=== PATIENT | male | born 1960 | race Caucasian/White ===

== ENCOUNTER 2016-12-08 07:47 | Emergency (ER) | payer MEDICAID, OTHER ==
[~2016-12-08] VITALS: Ht 177.8 cm; Wt 65.9 kg
[2016-12-08 07:52] VITALS: BP 101/68
[2016-12-08] MEDS ORDERED: ONDA4TAB5 PO (08:00)
[2016-12-08] MEDS ORDERED: IBUP200C10 PO (08:00)
[2016-12-08] MEDS ORDERED: METR1TAB66 PO (08:00)
[2016-12-08] MEDS ORDERED: NS 1,000 ML IV SCH (08:08)
[2016-12-08] MEDS ORDERED: ONDANSETRON 4MG/2ML VIAL (J2405) IV ONE (08:15)
[2016-12-08] MEDS ORDERED: MORPHINE 2 MG/ML 1ML SYRINGE IV PRN (08:15)
[2016-12-08 08:30] LABS: BASO % 0.4 % (0.0-1.0); EOS # 0.2 K/mm3 (0.0-0.50); EOS % 1.6 % (0.0-3.0); LARGE UNSTAINED CELL # 0.1 K/mm3 (0.0-0.4); LARGE UNSTAINED CELL % 1.1 % (0.0-4.0); LYMPH # 1.6 K/mm3 (1.5-4.5); LYMPH % 15.8 % (24.0-44.0); MEAN CORPUSCULAR HEMOGLOBIN 31.5 pg (27.0-33.0); MEAN CORPUSCULAR HGB CONC 33.4 g/dl (32.0-36.5); MEAN CORPUSCULAR VOLUME 94.4 fl (80.0-96.0); MONO # 0.5 K/mm3 (0.0-0.8); MONO % 5.6 % (0.0-5.0); NEUTROPHILS # 7.2 K/mm3 (1.8-7.7); NEUTROPHILS % 75.5 % (36.0-66.0); PLATELET COUNT, AUTOMATED 224 k/mm3 (150-450); RED CELL DISTRIBUTION WIDTH 12.7 % (11.5-14.5); WHITE BLOOD COUNT 9.5 K/mm3 (4.0-10.0)
[2016-12-08] MEDS ORDERED: GASTROGRAFIN SOLUTION 30ML PO ONE (08:35)
[2016-12-08] MEDS ORDERED: GASTROGRAFIN SOLUTION 30ML (Q9963) PO ONE (09:05)
[2016-12-08 09:24] LABS: ALBUMIN 3.3 GM/DL (3.2-5.2); ALKALINE PHOSPHATASE 82 U/L (45-117); ALT/SGPT 18 U/L (12-78); ANION GAP 5 MEQ/L (8-16); AST/SGOT 14 U/L (15-37); BILIRUBIN,DIRECT < 0.1 MG/DL (0.0-0.2); BILIRUBIN,TOTAL 0.3 MG/DL (0.2-1.0); BLOOD UREA NITROGEN 10 MG/DL (7-18); CALCIUM LEVEL 8.9 MG/DL (8.5-10.1); CARBON DIOXIDE LEVEL 27 MEQ/L (21-32); CHLORIDE LEVEL 109 MEQ/L (98-107); CREATININE FOR GFR 0.88 MG/DL (0.70-1.30); GLOMERULAR FILTRATION RATE > 60.0 (>56); GLUCOSE, FASTING 109 MG/DL (70-105); POTASSIUM SERUM 4.1 MEQ/L (3.5-5.1); SODIUM LEVEL 141 MEQ/L (136-145); TOTAL PROTEIN 6.6 GM/DL (6.4-8.2)
--- NOTE | 2016-12-08 10:18 | REP ---
CT abdomen and pelvis with oral but without IV contrast: History: Diverticulitis. Comparison CT study March 28, 2016. CT findings: Digital preliminary bail agent radiograph shows an unremarkable bowel gas pattern. There is a granulomatous calcification in the left lower lobe of the lung. The liver and spleen are normal in size and homogeneous in texture. No adrenal lesion is seen on either side. The pancreas is unremarkable. No gallbladder abnormality is observed. No retroperitoneal mass or adenopathy is seen. The kidneys remain morphologically intact. There is left colonic diverticulosis again noted. There is an area of mural thickening in the sigmoid colon centrally in the pelvis with pericolonic streaking and edema. This area is involved with diverticulosis and the findings are compatible with diverticulitis. The changes are similar in location and extent to those seen on March 28, 2016. No abscess or free air is seen. Impression: Findings consistent with recurrent sigmoid colon diverticulitis. No abscess or free air seen. No other significant abnormality. Signed by Maico Askew MD 12/08/2016 03:44 P
[2016-12-08] MEDS ORDERED: FLAG500T PO (10:42)
[2016-12-08] MEDS ORDERED: NORCOTAB PO (10:42)
[2016-12-08] MEDS ORDERED: CIPR-249 PO (10:42)
== END 2016-12-08 11:21 | disposition home or self-care (01) ==
LOC: M ED 07:47
DX: K57.92 Diverticulitis of intestine, part unspecified, without perforation or abscess without bleeding (principal); F17.210 Nicotine dependence, cigarettes, uncomplicated

== ENCOUNTER 2017-08-06 14:50 | Emergency (ER) | payer OTHER ==
[2017-08-06] MEDS: NS 1,000 ML IV (16:30)
[2017-08-06 17:38] LABS: BASO # 0.1 10^3/uL (0.0-0.2); BASO % 0.7 % (0.0-1.0); EOS # 0.2 10^3/uL (0.0-0.50); EOS % 1.7 % (0.0-3.0); HEMATOCRIT 45.4 % (42.0-52.0); HEMOGLOBIN 15.1 g/dl (14.0-18.0); IMMATURE GRANULOCYTE % 0.5 % (0-3.0); LYMPH # 2.1 10^3/uL (1.5-4.5); LYMPH % 21.6 % (24.0-44.0); MEAN CORPUSCULAR HEMOGLOBIN 30.9 pg (27.0-33.0); MEAN CORPUSCULAR HGB CONC 33.3 g/dl (32.0-36.5); MONO # 0.9 10^3/uL (0.0-0.8); MONO % 9.8 % (0.0-5.0); NEUTROPHILS # 6.2 10^3/uL (1.8-7.7); NEUTROPHILS % 65.7 % (36.0-66.0); PLATELET COUNT, AUTOMATED 262 10^3/uL (150-450); RED BLOOD COUNT 4.88 10^6/uL (4.30-6.10); RED CELL DISTRIBUTION WIDTH 12.8 % (11.5-14.5); WHITE BLOOD COUNT 9.5 10^3/uL (4.0-10.0)
[2017-08-06 17:49] LABS: KETONE, URINE AUTO RFX NEGATIVE (NEGATIVE); LEUKOCYTE ESTERASE UR AUTO RFX NEGATIVE (NEGATIVE); NITRITE, URINE AUTO RFX NEGATIVE (NEGATIVE); SPECIFIC GRAVITY UR AUTO RFX 1.009 (1.002-1.035)
[2017-08-06 17:50] LABS: RBC, URINE AUTO RFX 1 /HPF (0-3); SQUAM EPITHELIAL CELL UR AURFX 1 /HPF (0-6); WBC, URINE AUTO RFX 0 /HPF (0-3)
[2017-08-06 18:07] LABS: ALBUMIN/GLOBULIN RATIO 1.21 (1.00-1.93); ALKALINE PHOSPHATASE 88 U/L (45-117); ALT/SGPT 18 U/L (12-78); AMYLASE 33 U/L (25-115); ANION GAP 6 MEQ/L (8-16); AST/SGOT 10 U/L (7-37); BILIRUBIN,DIRECT < 0.1 MG/DL (0.0-0.2); BILIRUBIN,TOTAL 0.3 MG/DL (0.2-1.0); BLOOD UREA NITROGEN 12 MG/DL (7-18); CALCIUM LEVEL 9.1 MG/DL (8.5-10.1); CARBON DIOXIDE LEVEL 30 MEQ/L (21-32); CHLORIDE LEVEL 105 MEQ/L (98-107); CREATININE FOR GFR 0.85 MG/DL (0.70-1.30); GLOMERULAR FILTRATION RATE > 60.0 (>56); GLUCOSE, FASTING 67 MG/DL (70-100); LIPASE 123 U/L (73-393); POTASSIUM SERUM 3.9 MEQ/L (3.5-5.1); SODIUM LEVEL 141 MEQ/L (136-145); TOTAL PROTEIN 7.3 GM/DL (6.4-8.2)
[2017-08-06] MEDS ORDERED: ISOVUE-370 76% 100ML VIAL (Q9967) As Ordered (18:08)
== END 2017-08-06 19:32 | disposition home or self-care (01) ==
LOC: M ED 14:50
DX: K57.30 Diverticulosis of large intestine without perforation or abscess without bleeding (principal); Z20.9 Contact with and (suspected) exposure to unspecified communicable disease; F17.200 Nicotine dependence, unspecified, uncomplicated; F12.10 Cannabis abuse, uncomplicated
CPT/HCPCS: Q9967

== ENCOUNTER → 2020-07-24 | Outpatient (CLI) | payer OTHER ==
[~2020-07-24] MED LIST: CIPR-249 PO; FLAG500T PO; HYDR-3715 PO; IBUP200C25 PO; METR-265 PO; ONDA-83 PO
== END ==
LOC: M LABSMTC 10:41
PROVIDERS: ATTEND Anesthesiology
DX: Z01.812 Encounter for preprocedural laboratory examination (principal); Z20.822 Contact with and (suspected) exposure to COVID-19

== ENCOUNTER 2020-07-29 09:51 | Day surgery (SDC) | payer OTHER ==
[~2020-07-29] VITALS: Ht 177.8 cm; Wt 66.7 kg
[~2020-07-29 09:51] MED LIST changes: +AMPICILLIN SOD/SULBACTAM SOD 3 GM in D5W MINI-BAG PLUS 100 ML IV ONE; +LR 1,000 ML IV ONE; +dexameTHASONE 4 MG/ML 1ML VIAL (J1100 PER 1MG) IV ONE
[2020-07-29] MEDS ORDERED: LIDOCAINE 2% W/ EPINEPHRINE 1.7 ML DENTAL INJ As Ordered ONE ×2 (10:38→13:29)
[2020-07-29] MEDS ORDERED: dexameTHASONE 4 MG/ML 1ML VIAL (J1100 PER 1MG) As Ordered ONE (13:18)
[2020-07-29] MEDS ORDERED: SUCCINYLCHOLINE 100 MG/5 ML SYRINGE (J0330) As Ordered ONE (13:18)
[2020-07-29] MEDS ORDERED: ROCURONIUM BROMIDE 50 MG/5 ML VIAL As Ordered ONE (13:18)
[2020-07-29] MEDS ORDERED: fentaNYL 100 MCG/2 ML INJECTION (J3010) As Ordered ONE ×2 (13:18→14:47)
[2020-07-29] MEDS ORDERED: MIDAZOLAM INJ 2MG/2ML VIAL (J2250 PER 1MG) As Ordered ONE (13:18)
[2020-07-29] MEDS ORDERED: ONDANSETRON 4MG/2ML VIAL As Ordered ONE (13:18)
[2020-07-29] MEDS ORDERED: propofoL 200 MG/20 ML VIAL As Ordered ONE (13:18)
[2020-07-29] MEDS ORDERED: KETOROLAC 60MG 2ML VIAL As Ordered ONE (13:18)
[2020-07-29] MEDS ORDERED: LIDOCAINE 2% 100MG/5ML SDV (FOR ANES.) As Ordered ONE (13:18)
[2020-07-29] MEDS ORDERED: SUGAMMADEX SODIUM 500 MG/5 ML VIAL (BRIDION) As Ordered ONE (13:18)
[2020-07-29] MEDS ORDERED: PHENYLephrine 500MCG 5ML (100MCG/ML) SYRINGE As Ordered ONE (13:19)
[2020-07-29] MEDS ORDERED: VASOPRESSIN INJ 20 UNITS/ML VIAL As Ordered ONE (13:40)
[2020-07-29] MEDS ORDERED: ePHEDrine SULFATE 25 MG/5 ML(5MG/ML) SYRINGE As Ordered ONE (13:49)
[2020-07-29] MEDS: fentaNYL 100 MCG/2 ML INJECTION (J3010) IV PRN ×3 (14:38→15:08)
[2020-07-29] MEDS ORDERED: PERCOCET 5MG/325MG TAB As Ordered ONE (14:47)
[2020-07-29] MEDS ORDERED: ONDANSETRON 4MG/2ML VIAL IV PRN (14:55)
[2020-07-29] MEDS ORDERED: PERCOCET 5MG/325MG TAB PO PRN (14:55)
[2020-07-29] MEDS ORDERED: LR 1,000 ML IV SCH (14:55)
[2020-07-29] MEDS ORDERED: METOCLOPRAMIDE INJ 10MG/2ML VIAL (J2765 PER 1) IV PRN (14:55)
--- NOTE | 2020-07-29 14:59 | RO ---
OPERATIVE NOTE DATE OF OPERATION: 07/29/2020 PREOPERATIVE DIAGNOSES: 1. Severe dental anxiety. 2. Hopeless dentition including teeth #2, 3,4, 8, 9, 10, 11, 18, 19, 20, 21, 22, 23, 24, 25, 26, 27, 29 and 32. POSTOPERATIVE DIAGNOSIS: Status post: 1. Severe dental anxiety. 2. Hopeless dentition including teeth #2, 3,4, 8, 9, 10, 11, 18, 19, 20, 21, 22, 23, 24, 25, 26, 27, 29 and 32. PROCEDURE PERFORMED: Extraction of aforementioned teeth. SURGEON: Kervin Corona DMD, MD PASTEURIZER: ANESTHESIA USED: General endotracheal anesthesia via nasal ALFONSO. SPECIMEN: Teeth for gross only. INDICATIONS FOR SURGERY: Mitchel is a pleasant 60-year-old male who presented to my office referred by his dentist for evaluation for extraction of all of his teeth in preparation for possible future dentures. He wants to have this procedure done he tells me while unconscious as he has severe dental anxiety. He is not a very ideal candidate for office general anesthesia therefore I offered office conscious sedation which he declined versus operating room general anesthesia which is what he wanted. Therefore we set him up for the procedure. Insurance approval was obtained. History and physical was performed. Complete history and physical was performed and is in the patient's chart as well as well detailed informed consent which he agreed to and signed. DESCRIPTION OF PROCEDURE: The patient was taken back to the operating room and laid supine on the operating table. Ulnar nerve protectors were placed, noninvasive cardiac monitors were applied. At that point the patient underwent general anesthesia and was intubated with nasal ALFONSO. He was prepped and draped in the usual sterile fashion. Time out procedure was performed identifying the patient, procedure and any other precautions. A moist throat pack was inserted in the patient's oropharynx followed by the administration of 8 carpules of 2% Lidocaine with 1:100,000 Epinephrine. Full thickness flap was raised through sites #2, 3, 4, 11, 18, 19, 20, 21, 22, 27, 28, 29 and 32. Small buccal trough was made with Surgitome adjacent to the teeth to ease luxation and delivery which was performed with elevators and forceps. At this point forceps were then used to luxate and deliver teeth #8, 9, 10, 23, 24, 25 and 26. Alveoplasty was performed in each of the four quadrants to remove any undercuts and sharp bony edges down to smooth finish and all the sites were irrigated and curetted. No sinus exposure was noted; inferior alveolar nerve was not noted. Lingual cortices were intact. Flaps were then closed with interrupted 3-0 chromic sutures for primary closure. Hemostasis was easily achieved. At this point oral cavity was irrigated and suctioned and throat pack was removed. He was extubated and taken to the PACU under the care of the anesthesiologist and surgeon. COMPLICATIONS: None to be mentioned at time of surgery. ESTIMATED BLOOD LOSS: 20 mL. DRAINS: No drains placed.
[2020-07-29 16:10] VITALS: BP 115/65
== END 2020-07-29 16:35 | disposition home or self-care (01) ==
LOC: M SDC 09:51
PROVIDERS: ATTEND Dentist
DX: K02.9 Dental caries, unspecified (principal); K57.92 Diverticulitis of intestine, part unspecified, without perforation or abscess without bleeding; F17.218 Nicotine dependence, cigarettes, with other nicotine-induced disorders; F12.10 Cannabis abuse, uncomplicated
CPT/HCPCS: 88300; D7210; D7310; D9223; J0330; J1100; J1885; J2250; J2370; J2405; J3010